=== PATIENT | male | born 1985 | race African-American/Black ===

== ENCOUNTER 2019-03-18 11:22 | Emergency (ER) | payer MEDICAID ==
--- NOTE | 2019-03-18 12:42 | EDM.PDOC ---
ED HPI GENERAL MEDICAL PROBLEM - General Chief Complaint: Gastrointestinal Problem Stated Complaint: VOMITING,WEAK Time Seen by Provider: 03/18/19 12:44 Source of Information: Reports: Patient, Family History Limitations: Reports: No Limitations - History of Present Illness INITIAL COMMENTS - FREE TEXT/NARRATIVE: pt arrived feeling very weak. He has not had abdomanal pain . He did vomit twice during the nite and he did have a large liquid stool. He was very weak. His sig other had to help get dressed. he did start out with a sore throat. Onset: Other ( started 2 days ago. ) Duration: Hour(s): Associated Symptoms: Reports: Nausea/Vomiting, Other (pt had a sore throat. ) - Related Data Allergies Allergy/AdvReac Type Severity Reaction Status Date / Time No Known Allergies Allergy Verified 03/18/19 12:11 Home Meds: Home Meds NK [No Known Home Meds] 03/18/19 [History] Past Medical History HEENT History: Reports: None, Impaired Vision - Past Surgical History Head Surgeries/Procedures: Reports: None HEENT Surgical History: Reports: None Dermatological Surgical History: Reports: None Social & Family History - Tobacco Use Smoking Status *Q: Current Every Day Smoker Years of Tobacco use: 4 Packs/Tins Daily: 0.5 Used Tobacco, but Quit: No Second Hand Smoke Exposure: No - Caffeine Use Caffeine Use: Reports: Energy Drinks - Recreational Drug Use Recreational Drug Use: No ED ROS GENERAL - Review of Systems Review Of Systems: See Below Constitutional: Reports: Malaise, Weakness, Decreased Appetite HEENT: Reports: Throat Pain Respiratory: Reports: No Symptoms Cardiovascular: Reports: No Symptoms Endocrine: Reports: No Symptoms GI/Abdominal: Reports: Diarrhea, Nausea, Vomiting : Reports: No Symptoms Musculoskeletal: Reports: No Symptoms ED EXAM, GI/ABD - Physical Exam Exam: See Below Text/Narrative:: pt arrived with a history of feeling weak and vomiting 2 or three times and having a loose stool in the nite. He does not have severe abdomanal pain. Exam Limited By: No Limitations General Appearance: Alert, Anxious, Moderate Distress Ears: Normal TMs Nose: Normal Inspection Throat/Mouth: Normal Inspection Head: Atraumatic Neck: Normal Inspection Respiratory/Chest: No Respiratory Distress Cardiovascular: Normal Peripheral Pulses GI/Abdominal Exam: Soft, Non-Tender, Other (pt denies any abdomanal pain. ) (Male) Exam: Deferred Rectal (Males) Exam: Deferred, Other (pt had a large loose stool during the nite. ) Back Exam: Normal Inspection Extremities: Normal Inspection Neurological: Alert, Oriented, Normal Cognition Psychiatric: Normal Affect Course - Vital Signs Last Recorded V/S: Last Vital Signs Temp 36.6 C 03/18/19 12:12 Pulse 85 03/18/19 12:12 Resp 16 03/18/19 12:12 BP 142/87 H 03/18/19 12:12 Pulse Ox 93 L 03/18/19 12:12 - Orders/Labs/Meds Orders: Active Orders 24 hr Category Date Time Status CULTURE STREP A CONFIRMATION [] Stat Lab 03/18/19 12:42 Results STREP SCRN A RAPID W CULT CONF [] Stat Lab 03/18/19 12:42 Results Labs: Laboratory Tests 03/18/19 03/18/19 03/18/19 Range/Units 12:50 12:51 12:51 WBC 10.8 (4.5-11.0) K/uL RBC 5.41 (4.30-5.90) M/uL Hgb 14.6 (12.0-15.0) g/dL Hct 43.5 (40.0-54.0) % MCV 80 (80-98) fL MCH 27 (27-31) pg MCHC 34 (32-36) % Plt Count 189 (150-400) K/uL Neut % (Auto) 67 H (36-66) % Lymph % (Auto) 21 L (24-44) % [place] % (Auto) 9 H (2-6) % Eos % (Auto) 3 (2-4) % Baso % (Auto) 0 (0-1) % Sodium 141 (140-148) mmol/L Potassium 3.7 (3.6-5.2) mmol/L Chloride 106 (100-108) mmol/L Carbon Dioxide 28 (21-32) mmol/L Anion Gap 7.3 (5.0-14.0) mmol/L BUN 8 (7-18) mg/dL Creatinine 1.3 (0.8-1.3) mg/dL Est Cr Clr Drug Dosing 82.67 mL/min Estimated GFR (MDRD) > 60 (>60) Glucose 107 H (74-106) mg/dL Calcium 8.9 (8.5-10.1) mg/dL Total Bilirubin 0.9 (0.2-1.0) mg/dL AST 46 H (15-37) U/L ALT 80 H (12-78) U/L Alkaline Phosphatase 54 (46-116) U/L Total Protein 6.7 (6.4-8.2) g/dL Albumin 3.4 (3.4-5.0) g/dL Globulin 3.3 (2.3-3.5) g/dL Albumin/Globulin Ratio 1.0 L (1.2-2.2) Lipase 60 L (73-393) U/L Urine Color (YELLOW) Urine Appearance (CLEAR) Urine pH (5.0-8.0) Ur Specific [place] (1.008-1.030) Urine Protein (NEGATIVE) mg/dL Urine Glucose (UA) (NEGATIVE) mg/dL Urine Ketones (NEGATIVE) mg/dL Urine Occult Blood (NEGATIVE) Urine Nitrite (NEGATIVE) Urine Bilirubin (NEGATIVE) Urine Urobilinogen (0.2-1.0) EU/dL Ur Leukocyte Esterase (NEGATIVE) Urine RBC (0-5) Urine WBC (0-5) Ur Epithelial Cells Amorphous Sediment Urine Bacteria Urine Mucus Urine Opiates Screen (NEGATIVE) Ur Oxycodone Screen (NEGATIVE) Urine Methadone Screen (NEGATIVE) Ur Propoxyphene Screen (NEGATIVE) Ur Barbiturates Screen (NEGATIVE) Ur Tricyclics Screen (NEGATIVE) Ur Phencyclidine Scrn (NEGATIVE) Ur Amphetamine Screen (NEGATIVE) U Methamphetamines Scrn (NEGATIVE) Urine MDMA Screen (NEGATIVE) U Benzodiazepines Scrn (NEGATIVE) U Cocaine Metab Screen (NEGATIVE) U Marijuana (THC) Screen (NEGATIVE) 03/18/19 03/18/19 Range/Units 13:19 13:28 WBC (4.5-11.0) K/uL RBC (4.30-5.90) M/uL Hgb (12.0-15.0) g/dL Hct (40.0-54.0) % MCV (80-98) fL MCH (27-31) pg MCHC (32-36) % Plt Count (150-400) K/uL Neut % (Auto) (36-66) % Lymph % (Auto) (24-44) % [place] % (Auto) (2-6) % Eos % (Auto) (2-4) % Baso % (Auto) (0-1) % Sodium (140-148) mmol/L Potassium (3.6-5.2) mmol/L Chloride (100-108) mmol/L Carbon Dioxide (21-32) mmol/L Anion Gap (5.0-14.0) mmol/L BUN (7-18) mg/dL Creatinine (0.8-1.3) mg/dL Est Cr Clr Drug Dosing mL/min Estimated GFR (MDRD) (>60) Glucose (74-106) mg/dL Calcium (8.5-10.1) mg/dL Total Bilirubin (0.2-1.0) mg/dL AST (15-37) U/L ALT (12-78) U/L Alkaline Phosphatase (46-116) U/L Total Protein (6.4-8.2) g/dL Albumin (3.4-5.0) g/dL Globulin (2.3-3.5) g/dL Albumin/Globulin Ratio (1.2-2.2) Lipase (73-393) U/L Urine Color [place] A (YELLOW) Urine Appearance Clear (CLEAR) Urine pH 6.0 (5.0-8.0) Ur Specific [place] >= 1.030 (1.008-1.030) Urine Protein Negative (NEGATIVE) mg/dL Urine Glucose (UA) Negative (NEGATIVE) mg/dL Urine Ketones Negative (NEGATIVE) mg/dL Urine Occult Blood Negative (NEGATIVE) Urine Nitrite Negative (NEGATIVE) Urine Bilirubin Negative (NEGATIVE) Urine Urobilinogen 0.2 (0.2-1.0) EU/dL Ur Leukocyte Esterase Negative (NEGATIVE) Urine RBC Not seen (0-5) Urine WBC 0-5 (0-5) Ur Epithelial Cells Not seen Amorphous Sediment Few Urine Bacteria Not seen Urine Mucus Not seen Urine Opiates Screen Negative (NEGATIVE) Ur Oxycodone Screen Negative (NEGATIVE) Urine Methadone Screen Negative (NEGATIVE) Ur Propoxyphene Screen Negative (NEGATIVE) Ur Barbiturates Screen Negative (NEGATIVE) Ur Tricyclics Screen Negative (NEGATIVE) Ur Phencyclidine Scrn Negative (NEGATIVE) Ur Amphetamine Screen Negative (NEGATIVE) U Methamphetamines Scrn Negative (NEGATIVE) Urine MDMA Screen Negative (NEGATIVE) U Benzodiazepines Scrn Negative (NEGATIVE) U Cocaine Metab Screen Negative (NEGATIVE) U Marijuana (THC) Screen Negative (NEGATIVE) Meds: Medications Discontinued Medications Generic Name Dose Route Start Last Admin Trade Name Freq PRN Reason Stop Dose Admin Sodium Chloride 1,000 mls @ 999 mls/hr 03/18/19 12:45 03/18/19 13:05 Normal Saline IV 999 mls/hr ASDIRECTED MAGI Administration Sodium Chloride 1,000 mls @ 999 mls/hr 03/18/19 13:45 03/18/19 14:05 Normal Saline IV 999 mls/hr ASDIRECTED MAGI Administration Ondansetron HCl 4 mg 03/18/19 12:43 03/18/19 13:11 Zofran IVPUSH 03/18/19 12:44 4 mg ONETIME ONE Administration - Re-Assessments/Exams Free Text/Narrative Re-Assessment/Exam: 03/18/19 14:35 pt is dehydrated. He was given 2 liters of fluid and zoforan 4 mg iv. pt needs a note for work tonight. Departure - Departure Time of Disposition: 14:55 Disposition: Home, Self-Care 01 Condition: Fair Clinical Impression: Viral illness, Dehydration - Discharge Information Instructions: Dehydration, Adult, [id number], Viral Illness, Adult Referrals: PCP,None [Primary Care Provider] - Forms: ED Department Discharge Care Plan Goals: push fluids, zoforan 4 mg q6h prn for nausea, rtc if persistent problems. - My Orders Last 24 Hours: My Active Orders 03/18/19 12:42 CULTURE STREP A CONFIRMATION [RM] Stat STREP SCRN A RAPID W CULT CONF [RM] Stat - Assessment/Plan Last 24 Hours: My Active Orders 03/18/19 12:42 CULTURE STREP A CONFIRMATION [RM] Stat STREP SCRN A RAPID W CULT CONF [RM] Stat
[2019-03-18] MEDS ORDERED: Ondansetron 4 MG/2 ML SDV IVPUSH ONE (12:43)
[2019-03-18] MEDS ORDERED: Sodium Chloride 0.9% 1,000 ML IV SCH ×2 (12:45→13:45)
== END 2019-03-18 14:59 | disposition home or self-care (01) ==
LOC: JP.ED 11:22
DX: E86.0 Dehydration (principal); B34.9 Viral infection, unspecified; F17.210 Nicotine dependence, cigarettes, uncomplicated
CPT/HCPCS: 36415; 80053; 80305; 81001; 83690; 85025; 87081; 87880; 96361; 96374; 99284; J2405; J7030

== ENCOUNTER 2020-03-25 20:08 | Emergency (ER) | payer MEDICAID, OTHER ==
--- NOTE | 2020-03-25 21:08 | EDM.PDOC ---
ED HPI GENERAL MEDICAL PROBLEM - General Chief Complaint: Respiratory Problem Stated Complaint: COUGH PAIN IN CHEST Time Seen by Provider: 03/25/20 20:40 Source of Information: Reports: Patient History Limitations: Reports: No Limitations - History of Present Illness INITIAL COMMENTS - FREE TEXT/NARRATIVE: Quinn is a 34 year old whom present to [place] ER for evaluation of cough with sore throat since Wednesday. Children can home from cousins with illness last week, children were tested and negative for COVID. Quinn's symptoms started on Wednesday evening, body aches, chills and sweats with cough and sore throat. Quinn was unable to return to work on Wednesday-, attempted to return to work on Wednesday but vomited and sent home. Quinn was unable to return to work the remainder of the weekend but presents to ER today to return to work as symptoms have improved. Quinn works in production. back Pain Score (Numeric/FACES): 2 - Related Data Allergies Allergy/AdvReac Type Severity Reaction Status Date / Time No Known Allergies Allergy Verified 03/25/20 20:32 Home Meds: Home Meds NK [No Known Home Meds] 03/18/19 [History] Past Medical History HEENT History: Reports: None, Impaired Vision - Infectious Disease History Infectious Disease History: Reports: Chicken Pox - Past Surgical History Head Surgeries/Procedures: Reports: None HEENT Surgical History: Reports: None Dermatological Surgical History: Reports: None Social & Family History - Tobacco Use Smoking Status *Q: Current Every Day Smoker Years of Tobacco use: 7 Packs/Tins Daily: 0.2 Used Tobacco, but Quit: No Second Hand Smoke Exposure: Yes - Caffeine Use Caffeine Use: Reports: Coffee, Energy Drinks, Soda, Tea - Recreational Drug Use Recreational Drug Use: No ED ROS GENERAL - Review of Systems Review Of Systems: Comprehensive ROS is negative, except as noted in HPI. ED EXAM, GENERAL - Physical Exam Exam: See Below Exam Limited By: No Limitations General Appearance: Alert, WD/WN, Mild Distress Eye Exam: Bilateral Eye: EOMI, Normal Inspection Course - Vital Signs Last Recorded V/S: Last Vital Signs Temp 37.1 C 03/25/20 20:38 Pulse 78 03/25/20 20:38 Resp 16 03/25/20 20:38 BP 148/98 H 03/25/20 20:38 Pulse Ox 96 03/25/20 20:38 - Orders/Labs/Meds Orders: Active Orders 24 hr Category Date Time Status CORONAVIRUS COVID-19, EDITH Routine Lab 03/25/20 20:57 Ordered Departure - Departure Time of Disposition: 21:17 Disposition: Home, Self-Care 01 Clinical Impression: Cough, Viral respiratory illness, COVID-19 virus test result unknown, Elevated blood pressure reading - Discharge Information Instructions: COVID-19 Frequently Asked Questions, COVID-19: How to Protect Yourself and Others - CDC, Prevent the Spread of COVID-19 if You Are Sick - CDC, COVID-19, Infection Prevention in the Home, Preventing Hypertension, Hypertension, Adult Referrals: PCP,None [Primary Care Provider] - Additional Instructions: Your blood pressure was elevated during ER visit, recommend rechecking your blood pressure and pulse 3-4 times over the next month and take reading to clinic provider to discuss your blood press test results. Call clinic of choice for follow-up to establish primary care provider. COVID-19 Testing Without Symptoms Plan You have been tested for COVID-19 and you have symptoms which may be concerning for COVID. Although you may not have symptoms at this time, you can still spread the virus to others if the test is positive. You should follow the Prevention Steps until a health care provider or local [facility] health department provide you with test results and say you can return to activities. If you leave your home, keep a distance of 6 feet from others and wear a mask or face covering over your mouth and nose when around other people. It may take up to seven days for you to receive your test results. It is important we have your correct contact information, so you can view your test results and any care advice. If you test positive, you will also receive a phone call from a member of our care team. Negative Test Results You should continue to prevent yourself and others from getting COVID-19 through the Prevention Steps below. If you were tested (negative) and do not know if you were exposed to someone with COVID-19, you do not need home isolation. If symptoms return or occur repeat testing needed determine if you need to be retested for COVID-19. If you were tested (negative) and were exposed to someone with COVID-19, you should separate yourself from others for 14 days. It is important to separate yourself from others as symptoms may appear 2-14 days after exposure. Positive Test Results If you test positive for the COVID-19 virus and do not have symptoms, home isolation is recommended for: 1. At least 10 days have passed since the date of your first positive test. 2. You continue to have no symptoms (no cough or shortness of breath) since the test. If you develop symptoms during your isolation, continue isolation until these three thing have happened: No fever for at least 24 hours (one full day) without the use of medicine that reduces fever AND Symptoms have improved (cough, shortness of breath) * AND At least 10 days have passed since your symptoms first appeared *Loss of taste and smell may persist for weeks or months and should not delay the end of isolation Stay home except to get medical care If you were exposed to someone with COVID-19,develop symptoms, or your test was positive, you should restrict activities outside your home, except to get medical care. Do not go to work, school or public areas. Avoid using public transportation, ridesharing, or taxis. Follow guidance for test result above. Monitor for Symptoms Seek prompt medical attention if you develop severe symptoms (e.g., difficulty breathing).Put a mask over your mouth and nose before you enter the facility. If you have a medical emergency and need to call 911, notify the dispatch personnel that you have tested positive, have been exposed, or are being evaluated for COVID-19. If possible, put on a mask before emergency medical services arrive. Prevention Steps and self-care at home Socially distance. Keep at least 6 feet from yourself and other people. If you have been exposed to someone with COVID-19, develop symptoms, or your test was positive, separate yourself from other people and animals in your home as well. Stay in a specific room and away from other people in your home as much as possible and use a separate bathroom, if available. Call ahead before visiting your doctor. If you have a medical appointment, call the clinic if you have symptoms of COVID-19, have been exposed to someone with COVID-19, or tested positive. This will help the health care providers office take steps to keep other people from getting infected or being exposed. Wear a mask. You should wear a mask when you are around other people in any public places. If you have been exposed to someone with COVID-19, develop symptoms or your test was positive, you should wear a mask when around other people or pets in your household (e.g., sharing a room or vehicle) as well. If you are not able to wear a mask (for example, because it causes trouble breathing), then people who live with you should not stay in the same room with you, and they should wear a mask if they enter your room. Masks are not recommended for children under 2 years old. Clean your hands often. Wash your hands often with soap and water for at least 20 seconds or clean your hands with an alcohol- based hand able bodied watchman that contains 60-95% alcohol, covering all surfaces of your hands and rubbing them together until they feel dry. Soap and water should be used if your hands are visibly dirty. Avoid touching your eyes, nose and mouth with unwashed hands. Cover coughs and sneezes. Cover your mouth and nose with a tissue when you cough or sneeze. Throw used tissues in a lined trash can; immediately clean your hands. Avoid sharing personal household items. You should not share dishes, drinking glasses, cups, or eating utensilswith other people or pets in your home. After using these items, they should be washed thoroughly with soap and water. Clean all high-touch surfaces every day. High-touch surfaces include counters, tabletops, doorknobs, bathroom fixtures, toilets, phones, keyboards, tablets and bedside tables. Also, clean any surface that may have blood, stool or bodily fluids on them. Use a household cleaning chemical, according to the label instructions. Labels contain instructions for safe and effective use of the cleaning product including precautions you should take when applying the product, such as wearing gloves and making sure you have good ventilation during use of the product. Work Note COVID Illness testing RE: Quinn To whom it may concern: Quinn was seen today for symptoms cough, sore throat which may indicate viral illness with Covid-19.Quinn was tested for Covid-19 which may take 5-7 days for result to beocme available. The CDC guidance for people with Covid-like symptoms is listed below. The link to this information is https://www.cdc.gov/coronavirus/2019-ncov/dg-gig-jjp-sick/retcg-weej-fpup.html CDC Guidelines for Employees and Employers are as follows: People with COVID-19 who have stayed home (home isolated) can stop home isolation under the following conditions: You have had no fever for at least 72 hours (that is three full days of no fever without the use medicine that reduces fevers) AND other symptoms have improved (for example, when your cough or shortness of breath have improved) AND at least 10 days have passed since your symptoms first appeared We urge employers to follow the CDC guidance for people with Covid-like symptoms in order to protect our workforce. Sincerely, Caroline Saunders PA-C Sepsis Event Note (ED) - Evaluation Sepsis Screening Result: No Definite Risk - Focused Exam Vital Signs: Vital Signs Temp Pulse Resp BP Pulse Ox 03/25/20 20:38 37.1 C 78 16 148/98 H 96 03/25/20 20:31 37.1 C 78 16 148/98 H 96 - My Orders Last 24 Hours: My Active Orders 03/25/20 20:57 CORONAVIRUS COVID-19, EDITH Routine - Assessment/Plan Last 24 Hours: My Active Orders 03/25/20 20:57 CORONAVIRUS COVID-19, EDITH Routine
== END 2020-03-25 21:30 | disposition home or self-care (01) ==
LOC: JP.ED 20:08
DX: B34.9 Viral infection, unspecified (principal); R03.0 Elevated blood-pressure reading, without diagnosis of hypertension; F17.210 Nicotine dependence, cigarettes, uncomplicated; Z20.828 Contact with and (suspected) exposure to other viral communicable diseases
CPT/HCPCS: 99282; 99283; U0002